=== PATIENT | female | born 1985 | race Caucasian/White ===

== ENCOUNTER 2016-03-13 08:00 | Inpatient (IN) | payer BC, OTHER ==
[2016-03-09 16:05] VITALS: BMI 24.0
[2016-03-13] MEDS ORDERED: ROPIVACAINE HCL 0.5% 30ML VIAL ONE (09:23)
[2016-03-13] MEDS ORDERED: MIDAZOLAM HCL 2 MG/2 ML SINGLE DOSE VIAL ONE ×2 (09:24)
--- NOTE | 2016-03-13 09:55 | HP ---
History & Physical Update - History History: No Change - Physical Physical: No Change - Assessment Assessment: No Change - Plan Plan: No Change (Uterine Fibroids, AUB - for abdominal myomectomy)
[2016-03-13] MEDS ORDERED: oxyCODONE HCL 5 MG TABLET PO PRN (09:57)
[2016-03-13] MEDS ORDERED: ONDANSETRON 4 MG/2 ML VIAL IVPB PRN (09:58)
[2016-03-13] MEDS ORDERED: LIDOCAINE HCL 2% (20ML MULTI-DOSE VIAL) NR ONE (10:09)
[2016-03-13] MEDS ORDERED: ceFAZolin SODIUM 1 GM VIAL ONE (10:09)
[2016-03-13] MEDS ORDERED: PROPOFOL 20 ML ONE (10:09)
[2016-03-13] MEDS ORDERED: ROCURONIUM BROMIDE 50 MG/5 ML VIAL ONE (10:09)
[2016-03-13] MEDS ORDERED: CEFAZOLIN (PRE-DOCKED) 50 ML IVPB ONE (10:10)
[2016-03-13] MEDS ORDERED: ceFAZolin SODIUM 1 GM VIAL IVPB ONE (10:44)
[2016-03-13] MEDS ORDERED: DEXAMETHASONE SOD PHOSPHATE 4 MG/1 ML VIAL ONE (10:59)
[2016-03-13] MEDS ORDERED: GLYCOPYRROLATE 0.2 MG/1 ML VIAL ONE (10:59)
[2016-03-13] MEDS ORDERED: NEOSTIGMINE METHYLSULFATE 0.5 MG/ML - 10 ML MDV ONE (11:00)
[2016-03-13] MEDS ORDERED: KETOROLAC TROMETHAMINE 30 MG/1 ML VIAL ONE (11:43)
[2016-03-13] MEDS ORDERED: ACETAMINOPHEN 1000 MG/100 ML VIAL (NON FORMULARY) IVPB PRN (11:51)
[2016-03-13] MEDS ORDERED: HYDROmorphone HCL CARPU-JECT 1 MG/1 ML DISP.SYRIN IVPB PRN (11:55)
--- NOTE | 2016-03-13 11:57 | OP ---
Operative Note - Note: Operative Date: 03/13/16 Pre-Operative Diagnosis: fibroid uterus, abnormal uterine bleeding, back and pelvic pain Operation: abdominal myomectomy Findings: large 5cm fundal fibroid smaller 3cm posterior fibroid - subserosal two small 1cm fibroids posteriorily/intramurally Post-Operative Diagnosis: Same as Pre-op Surgeon: Lucy Joshi Logistics Vice President: Beverly Abarca Anesthesiologist/LABEL MAKER: Tesha Cordero Anesthesia: General Specimens Removed: Fibroids (4) Estimated Blood Loss (mls): 50 Operative Report Dictated: Yes
[2016-03-13] MEDS: HYDROmorphone HCL CARPU-JECT 2 MG/1 ML DISP.SYRIN IVPUSH PRN ×3 (11:58→12:50)
[2016-03-13] MEDS ORDERED: HYDROmorphone HCL CARPU-JECT 2 MG/1 ML DISP.SYRIN ONE ×2 (12:08→12:49)
[2016-03-13] MEDS ORDERED: ONDANSETRON 4 MG/2 ML VIAL ONE (13:04)
[2016-03-13] MEDS ORDERED: ACETAMINOPHEN INJECTION 100 ML IVPB ONE (13:09)
[2016-03-13] MEDS: LACTATED RINGERS SOLUTION 1,000 ML IV SCH (16:29)
[2016-03-13] MEDS: IBUPROFEN 800 MG/8 ML IJ IVPB PRN (19:07)
[2016-03-14] MEDS: IBUPROFEN 800 MG/8 ML IJ IVPB PRN (01:11)
[2016-03-14] MEDS: LACTATED RINGERS SOLUTION 1,000 ML IV SCH ×2 (02:20→12:45)
[2016-03-14] MEDS: oxyCODONE HCL 5 MG TABLET PO PRN ×3 (07:37→20:09)
[2016-03-14 08:41] LABS: BASOPHIL 0.4 % (0-2.0); EOSINOPHIL 0.4 % (0-4.5); MCH 31.1 pg (25.7-33.7); MCHC 34.1 g/dl (32.0-36.0); MEAN CELL VOLUME 91.2 fl (80-96); MEAN PLT VOLUME 8.7 fl (7.5-11.1); NEUTROPHILS 58.5 % (42.8-82.8); PLATELET COUNT 133 K/MM3 (134-434); RDW 12.7 % (11.6-15.6)
--- NOTE | 2016-03-14 08:45 | PN ---
Progress Note, Physician Chief Complaint: Pain History of Present Illness: Pt seen/evaluated and doing well. Sitting up tolerating clears at this time. Had some pain overnight, concerned it is related to gas pain. Has not yet been OOB. No flatus yet. Montano catheter still in place draining clear yellow urine. No CP/SOB/F/C/PETER or VB. No other complaints. - Current Medication List Current Medications: Active Medications Hydromorphone HCl (Dilaudid Injection -) 1 mg IVPB Q4H PRN PRN Reason: PAIN LEVEL 6-10 Lactated Ringer's (Lactated Ringers Solution) 1,000 mls @ 125 mls/hr IV ASDIR CARMEN Last Admin: 03/14/16 02:20 Dose: 125 mls/hr Ibuprofen (Motrin -) 800 mg PO Q8H PRN PRN Reason: FEVER Oxycodone HCl (Roxicodone -) 5 mg PO Q4H PRN PRN Reason: PAIN LEVEL 1-5 Last Admin: 03/14/16 05:03 Dose: 5 mg Oxycodone HCl (Roxicodone -) 10 mg PO Q4H PRN PRN Reason: PAIN LEVEL 6-10 Last Admin: 03/14/16 07:37 Dose: 10 mg - Objective Vital Signs: Vital Signs Temperature 98.8 F 03/14/16 05:24 Pulse Rate 72 03/14/16 05:24 Respiratory Rate 20 03/14/16 05:24 Blood Pressure 114/67 03/14/16 05:24 O2 Sat by Pulse Oximetry (%) 100 03/13/16 21:30 Constitutional: Yes: Well Nourished, No Distress, Calm Eyes: Yes: Conjunctiva Clear, EOM Intact HENT: Yes: Atraumatic, Normocephalic Neck: Yes: Supple, Trachea Midline Cardiovascular: Yes: Regular Rate and Rhythm Respiratory: Yes: Regular, CTA Bilaterally Gastrointestinal: Yes: Soft, Tenderness (appropriate post surgical tenderness). No: Distention Genitourinary: Yes: Montano Present Edema: No Wound/Incision: Yes: Clean/Dry, Well Approximated, Other (dermabond/skin glue in tact) Neurological: Yes: Alert, Oriented Psychiatric: Yes: Alert, Oriented Problem List - Problems (1) Status post myomectomy Code(s): Z98.89 - OTHER SPECIFIED POSTPROCEDURAL STATES * DO NOT USE * Assessment/Plan 30 y/o POD #1 s/p abdominal myomectomy - AFVSS - Hgb 10.7 post op - Advance diet as tolerated - D/C montano and get OOB - PO pain meds - routine care
[2016-03-14] MEDS: IBUPROFEN 400 MG TABLET (FP) PO PRN (10:18)
[2016-03-14] MEDS: ACETAMINOPHEN 325 MG TABLET (FP) PO PRN ×3 (10:19→20:10)
--- NOTE | 2016-03-14 12:17 | PATH ---
Surgical Pathology Report Patient Name: SILVANO MEEHAN [facility]. Rec. 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 Specimen(s) Received FIBROIDS Clinical History Fibroids Final Diagnosis UTERUS, ABDOMINAL MYOMECTOMY: LEIOMYOMATA, 3, AGGREGATE WEIGHT 71 GRAMS. Electronically Signed Madhu Mireles M.D. Gross Description Received in formalin, labeled "fibroids," is a 71 g aggregate of 3 okeefe, irregular, firm nodules ranging from 1.3-6.3 cm in greatest dimension, consistent with fibroids. Sectioning reveals okeefe, firm to rubbery parenchyma with a whorled architecture. No areas of hemorrhage or necrosis are identified. Department Assistant sections are submitted in 6 cassettes as follows: 1-entirely submitted smallest fibroid; 2-3-medium fibroid; 3-6-largest fibroid. /03/13/2016 saudi03/13/2016
--- NOTE | 2016-03-14 13:58 | OP ---
DATE OF OPERATION: 03/13/2016 PREOPERATIVE DIAGNOSIS: Abnormal uterine bleeding, uterine fibroids, and pelvic and back pain. POSTOPERATIVE DIAGNOSIS: Abnormal uterine bleeding, uterine fibroids, and pelvic and back pain. PROCEDURE: Abdominal myomectomy. SURGEON: Lucy Joshi DO IT PORTFOLIO MANAGER: Beverly Abarca MD ANESTHESIA: General. Anesthesia administered by Tesha Cordero MD. COMPLICATIONS: None. ESTIMATED BLOOD LOSS: 75 mL. SPECIMENS: Included 4 fibroids sent to pathology for permanent evaluation. DISPOSITION: Stable to PACU. BRIEF HISTORY AND PROCEDURE: Patient is a 30-year-old female who had been seen in the office with complaints of abnormal uterine bleeding and pelvic pain. Upon ultrasound examination, was noted to have a large fundal fibroid along with multiple small fibroids throughout her uterus. Patient was counseled on her options. She elected to undergo an abdominal myomectomy procedure. The consents were signed in the office. The patient was then brought to [facility] on March 13, 2016. Consents were reconfirmed. The patient was then taken back to the operating room where she was given general anesthesia and placed in the dorsal supine position, and a Preciado catheter was placed under sterile conditions. The patient was prepped and draped in the usual sterile fashion. A hard timeout was performed. A Pfannenstiel skin incision was created in the skin and carried through the underlying rectus fascia using the Bovie. The rectus fascia was incised on either side of the midline, and the rectus fascial incision was carried in superolateral direction with the Bovie. The superior aspect of the fascia was tented upward, dissected off the underlying layer of rectus muscle. The same was repeated on the inferior aspect of the fascia. The musculature was identified, bluntly. The peritoneum was entered and dissected sharply excised to allow for adequate room for the procedure. The uterus was exteriorized from the abdomen, and a large fundal fibroid and a posterior fibroid were appreciated. A tourniquet was placed around the uterine arteries, and then, Pitressin was injected into the fibroid. Next, an incision was created on the fundus of the uterus in longitudinal fashion until the fibroid was reached, and the fibroid was then dissected out of its capsule using sharp dissection. The large defect of the fundus was repaired in several layers using 0 Vicryl suture. An approximately 3-cm posterior fibroid was appreciated which was also incised and dissected out of its capsule, sharply excised and sent to pathology for permanent evaluation. Two other small fibroids posteriorly were noted which were dissected out and sent to pathology. The defects all were reapproximated using 0 Vicryl suture in several-layer closures and excellent hemostasis was achieved. The tourniquet was removed. Minimal bleeding was noted from each of the incision sites. Interceed was placed over both uterine incisions. The uterus was placed back into the abdomen. The peritoneum was reapproximated in a running layer using Vicryl suture. The musculature was not reapproximated. The fascia was reapproximated in a running fashion using 1 Vicryl suture. The subcutaneous tissue was irrigated and the subcutaneous tissue was closed in 2 layers using Biosyn suture and the skin was reapproximated using Dermabond skin glue. The patient was awoken from anesthesia, recovering in stable condition at the time of this dictation. All sponge, needle, and instrument counts were reported to be correct. Please note that although not entering the endometrial cavity during this procedure, a large uterine fibroid was removed from the fundus. Would recommend section delivery in future pregnancies. LUCY JOSHI DO /[id number] MTDD
--- NOTE | 2016-03-14 14:57 | PN ---
Progress Note (short form) - Note Progress Note: ANESTHESIA POST-OP CHECK 30F s/p abdominal myomectomy with bilateral TAP blocks and under general anesthesia, POD #1. No acute complaints, pain 4/10 and tolerable. Denies N/V, ambulating, tolerating PO diet. Vital Signs Temperature 98.9 F 03/14/16 14:00 Pulse Rate 80 03/14/16 14:00 Respiratory Rate 18 03/14/16 14:00 Blood Pressure 110/64 03/14/16 14:00 O2 Sat by Pulse Oximetry (%) 100 03/13/16 21:30 Active Medications Acetaminophen (Tylenol -) 650 mg PO Q4H PRN PRN Reason: FEVER OR PAIN Last Admin: 03/14/16 10:19 Dose: 650 mg Hydromorphone HCl (Dilaudid Injection -) 1 mg IVPB Q4H PRN PRN Reason: PAIN LEVEL 6-10 Lactated Ringer's (Lactated Ringers Solution) 1,000 mls @ 125 mls/hr IV ASDIR CARMEN Last Admin: 03/14/16 12:45 Dose: Not Given Ibuprofen (Motrin -) 800 mg PO Q8H PRN PRN Reason: FEVER Last Admin: 03/14/16 10:18 Dose: 800 mg Oxycodone HCl (Roxicodone -) 5 mg PO Q4H PRN PRN Reason: PAIN LEVEL 1-5 Last Admin: 03/14/16 05:03 Dose: 5 mg Oxycodone HCl (Roxicodone -) 10 mg PO Q4H PRN PRN Reason: PAIN LEVEL 6-10 Last Admin: 03/14/16 07:37 Dose: 10 mg Gen: awake, alert No apparent anesthesia complications. Pain well controlled. Continue management as per primary team.
[2016-03-15] MEDS: ACETAMINOPHEN 325 MG TABLET (FP) PO PRN ×2 (00:03→09:40)
[2016-03-15] MEDS: oxyCODONE HCL 5 MG TABLET PO PRN (00:04)
[2016-03-15] MEDS: IBUPROFEN 400 MG TABLET (FP) PO PRN (05:13)
[2016-03-15 09:15] VITALS: BP 125/60; PULSE 92; TEMP 98.2
--- NOTE | 2016-03-15 10:11 | DS ---
Physical Examination Vital Signs: Vital Signs Temperature 98.2 F 03/15/16 09:00 Pulse Rate 92 H 03/15/16 09:00 Respiratory Rate 20 03/15/16 09:00 Blood Pressure 125/60 03/15/16 09:00 O2 Sat by Pulse Oximetry (%) 100 03/13/16 21:30 Findings/Remarks: Pt seen/evaluated on day of discharge. Pt feeling well. Ambulating, voiding, passing flatus and tolerating diet. No CP/SOB/F/C/PETER. No other issues. Constitutional: Yes: Well Nourished, No Distress, Calm Eyes: Yes: Conjunctiva Clear, EOM Intact HENT: Yes: Atraumatic, Normocephalic Neck: Yes: Supple, Trachea Midline Cardiovascular: Yes: Regular Rate and Rhythm Respiratory: Yes: Regular, CTA Bilaterally Gastrointestinal: Yes: Normal Bowel Sounds, Soft Labs: CBC, BMP 03/14/16 08:00 Discharge Summary Reason For Visit: FIBROIDS/AUB Current Active Problems Status post myomectomy (Acute) Procedures: Principal: abdominal myomectomy Hospital Course: Pt admitted 03/13/16 for abdominal myomectomy due to AUB and fibroids. Pt underwent uncomplicated surgery and recovery. On post op day 2, patient was voiding, passing flatus, tolerating diet and ambulating without issues. Pt was discharged home in stable condition on post op day 2. Condition: Good - Instructions Diet, Activity, Other Instructions: Physical activity Resume your normal everyday activity as tolerated but no heavy lifting or strenuous exercise until seen by your surgeon. You may walk unlimited amounts and climb stairs. You may resume driving the car when you feel safe and comfortable behind the wheel- usually about 2 weeks. No sexual activity as instructed by Dr. Abarca. Wound care If they is glue on the skin - leave it in place. It will peel off in the next 7 to 10 days. Do Not Peel it off. You may shower the day after surgery. If there is glue present on the skin, you may shower over it. You may shower only, no soaking in tubs/baths/pools. Diet There are no dietary restrictions. Eat healthy, high-fiber foods. Drink 6 to 8 glasses of liquid each day. This will assist in keeping your bowels regular. Pain management You may take Tylenol or Ibuprofen for mild pain. A prescription for Percocet will be sent to your pharmacy for severe pain - take as directed. Call Dr. Joshi for any of the following: Severe pain not relieved by medication Fever of 101 or higher Excessive bleeding or drainage on dressing Inability to urinate Call the office at [phone] for an appointment in seven days. Referrals: Lucy Joshi DO [Staff Physician] - (1 week for incision check) Disposition: HOME - Home Medications Comprehensive Discharge Medication List: Ambulatory Orders Norgestimate-Ethinyl Estradiol [Trinessa Lo Tablet] 1 each PO DAILY 03/09/16 Oxycodone HCl/Acetaminophen [Percocet 5-325 mg Tablet -] 1 tab PO Q4H #20 tablet MDD 6 03/14/16 Ibuprofen 600 mg PO Q6H #30 tablet 03/15/16
== END 2016-03-15 09:50 | disposition home or self-care (01) | DRG 743 ==
LOC: EDSTATUS 08:00 → JSAMEDAYSX 08:27 → J3W 14:07
PROVIDERS: ADMIT Obstetrics & Gynecology; ATTEND Obstetrics & Gynecology
PROC: 0UB90ZZ Excision of Uterus, Open Approach (ICD-10-PCS; principal; 2016-03-13 10:00)
DX: D25.2 Subserosal leiomyoma of uterus (principal); D25.1 Intramural leiomyoma of uterus; N93.9 Abnormal uterine and vaginal bleeding, unspecified; M54.9 Dorsalgia, unspecified
CPT/HCPCS: 36415; 84703; 85025; 88305-TC; 94010; 94760